=== PATIENT | male | born 1995 | race African-American/Black ===

== ENCOUNTER 2017-04-15 03:46 | Emergency (ER) | payer SELFPAY ==
[2017-04-15 04:04] VITALS: BP 117/74
--- NOTE | 2017-04-15 04:20 | EDM.PDOC ---
ED HPI GENERAL MEDICAL PROBLEM - General Chief Complaint: Respiratory Problem Stated Complaint: COUGH / CHEST PAIN Time Seen by Provider: 04/15/17 04:16 Source of Information: Reports: Patient History Limitations: Reports: No Limitations - History of Present Illness INITIAL COMMENTS - FREE TEXT/NARRATIVE: History of present illness: [21-year-old male presents with a cough he's had for several days nonproductive he is on inhalers doesn't remember the names of them but one of them sounds like albuterol she says has a steroid in it. He recently moved here from the [facility]. He is a nonsmoker lactose intolerant in reviewing his history of use of his inhalers he just uses the steroid inhaler he is having a great deal of trouble and not using it on a regular basis the albuterol inhaler he'll use 2 or 3 times a day 2 puffs as needed. Said no fevers or chills significant shortness of breath. He helps his grandpa all things he says.] Review of systems: As per history of present illness and below otherwise all systems reviewed and negative. Past medical history: As per history of present illness and as reviewed below otherwise noncontributory. Surgical history: As per history of present illness and as reviewed below otherwise noncontributory. Social history: No reported history of drug or alcohol abuse. Family history: As per history of present illness and as reviewed below otherwise noncontributory. Physical exam: HEENT: Atraumatic, normocephalic, pupils reactive, negative for conjunctival pallor or scleral icterus, mucous membranes moist, throat clear, neck supple, nontender, trachea midline. Lungs: He does have some scattered wheezes but the good air movement throughout Heart: S1S2, regular, negative for clicks, rubs, or JVD. Abdomen: Soft, nondistended, nontender. Negative for masses or hepatosplenomegaly. Negative for costovertebral tenderness. Pelvis: Stable nontender. Genitourinary: Deferred. Rectal: Deferred. Extremities: Atraumatic, negative for cords or calf pain. Neurovascular unremarkable. Neuro: Awake, alert, oriented. Cranial nerves II through XII unremarkable. Cerebellum unremarkable. Motor and sensory unremarkable throughout. Exam nonfocal. Diagnostics: [] Therapeutics: [] Impression: [Exacerbation of asthma] Plan: [I educated him on the use of his inhalers around the cotton interested use them appropriately and I think that if he uses them as I advised that he'll do better.] Definitive disposition and diagnosis as appropriate pending reevaluation and review of above. Past Medical History Respiratory History: Reports: Asthma Social & Family History - Tobacco Use Smoking Status *Q: Unknown Ever Smoked ED ROS GENERAL - Review of Systems Review Of Systems: ROS reveals no pertinent complaints other than HPI. ED EXAM, GENERAL - Physical Exam Exam: See Below Course - Vital Signs Last Recorded V/S: Last Vital Signs Temp 36.3 C 04/15/17 04:02 Pulse 83 04/15/17 04:02 Resp 15 04/15/17 04:02 BP 117/74 04/15/17 04:02 Pulse Ox 96 04/15/17 04:02 Departure - Departure Time of Disposition: 04:19 Disposition: Home, Self-Care 01 Condition: Good Clinical Impression: Exacerbation of asthma - Discharge Information Referrals: PCP,None [Primary Care Provider] - Additional Instructions: As we discussed you can use your albuterol inhaler 2-3 puffs every 3-4 hours as needed. I don't think you're using it enough from what you're saying. The other inhaler that has the steroid in it you should use every day regardless of how you feel are 2 puffs twice a day. If you do this I think things will better for you. It was nice to meet you and I wish you the best
--- NOTE | 2017-05-06 08:50 | ER ---
DATE OF SERVICE: 04/30/2017 This is a patient complaint and I am responding to the complaint. I have a number of times attempted to contact [employer] and also contact his girlfriend. I was able to speak to Bibiana at one point, and she agreed to have her and Audi come in and visit with me and they did not show up for that visit. Today, I also once again tried to contact both of them, [employer] at his number and Bibiana at her number, Bibiana did eventually answered the phone, but she was unwilling to talk to me. I think there was a great deal of misunderstanding with respect to their complaint, and I recalled that, prior to the time that I spent with them, I did discuss the use of his albuterol and another inhaler in which I do not recall the name of it, but it contained a steroid medication with a long acting medication that he was using. He was not using them appropriately, and so, I did educate him on the use of his inhalers, but my encounter with him was uneventful, and so, I am very shocked and surprised at this complaint. But once again, I am willing to do whatever I can to try resolve this and I have attempted to contact them personally but it just does not seem that this is working out, and so, if they want to meet with me and some other person I would be happy to make myself available to do that. Sincerely, Sebastien Cooper MD /[id number]
== END 2017-04-15 04:26 | disposition home or self-care (01) ==
LOC: JP.ED 03:46
DX: J45.901 Unspecified asthma with (acute) exacerbation (principal)
CPT/HCPCS: 99283